=== PATIENT | female | born 1930 | race Caucasian/White ===

== ENCOUNTER 2018-06-24 06:18 | Emergency (ER) | payer OTHER ==
[~2018-06-24] VITALS: Ht 162.6 cm; Wt 75.3 kg
[~2018-06-24 06:18] MED LIST: ALDACTONE50 MG PO; AMLODIPINE BESY10 M1 PO; BACTRIM DS1 TAB PO; CETIRIZINE10 M1 PO; CHLORTHALIDONE25 MG PO; ECO81 PO; FUROSEMIDE20 MG PO; HYDRALAZINE HY100 MG; HYDRALAZINE HYD50 MG PO; KEFLEX500 MG PO; LAC PO; LANTUS SOLOS100 U/M1 SQ; LASIX20 MG PO; LIPI20 PO; LIPITOR10 MG PO; LOP100 PO; LOPRESSOR100 MG PO; MAC100 PO; METOPROLOL TART25 M1 PO; PATIROMER PO; PAXIL10 MG PO; SIMVASTATIN10 M1 PO; TRADJENTA5 M1 PO; VELTASSA PO; VITAMIN D32000 I2 PO; ZESTRIL20 MG PO; ZESTRIL40 MG PO; ZOCOR20 MG PO
[2018-06-24 06:30] VITALS: Ht 162.6 cm; Wt 75.3 kg
[2018-06-24 08:25] VITALS: BP 140/79
== END 2018-06-24 08:10 | disposition home or self-care (01) ==
LOC: ED 06:18
DX: M19.011 Primary osteoarthritis, right shoulder (principal); I10 Essential (primary) hypertension; E11.9 Type 2 diabetes mellitus without complications; E78.00 Pure hypercholesterolemia, unspecified
CPT/HCPCS: J1885; Q0092